=== PATIENT | female | born 1980 | race Caucasian/White ===

== ENCOUNTER 2021-04-03 20:32 | Inpatient (IN) ==
--- NOTE | 2021-04-03 21:07 | XRay Report ---
INDICATION: coughing blood tinged sputum TECHNIQUE: PA and lateral upright chest x-ray COMPARISON: Previous chest x-ray dated 03/19/2021 FINDINGS: Lungs: Dense right lower lobe consolidation consistent with pneumonia. This is new since previous examination. Growth is too rapid for neoplasm. Left lung is negative Heart, vascular: No significant cardiomegaly. Pulmonary vascularity is normal. No pulmonary edema or pulmonary congestion Mediastinum, micaela: No mediastinal widening. No hilar mass Pleura:No pleural fluid. No pleural-based mass or calcification Thoracic spine, ribs: No thoracic compression fracture. Ribs are negative. No fracture. No lytic lesion IMPRESSION: Right lower lobe consolidation consistent with pneumonia Interpreted and Authenticated by: Omar Houser 04/03/21
[2021-04-03] MEDS ORDERED: 0.9 % SODIUM CHLORIDE 1,000 ML IV ONE ×3 (21:48→23:17)
[2021-04-03] MEDS ORDERED: LEVOFLOXACIN 750 MG/150 ML BAG IV ONE (21:50)
--- NOTE | 2021-04-03 21:51 | Emergency Department Note ---
HPI General Chief complaint: Rib Pain Stated complaint: Right Rib Pain Time Seen by Provider: 04/03/21 20:49 Source: patient Mode of arrival: ambulatory Limitations: no limitations History of Present Illness HPI Narrative: Narrative: The patient presents with continued right-sided rib pain. This is nontraumatic. She was seen 10 days ago and reportedly had a negative work-up. She does describe a cough. She denies fever. She has mild dyspnea because of the pain. She denies calf pain or swelling. She is naus eated and vomited one time. She denies other associated problems. She denies having any fever. Related Data Home Medications Medication Instructions Recorded Confirmed albuterol sulfate 90 mcg/actuation See Rx Instructions INHALATION 04/23/20 04/23/20 aerosol inhaler .COMPLEX PRN g buspirone 15 mg tablet See Rx Instructions PO .COMPLEX 04/23/20 04/23/20 desogestrel 0.15 mg-ethinyl See Rx Instructions PO .COMPLEX 04/23/20 04/23/20 estradiol 0.03 mg tablet duloxetine 30 mg capsule,delayed See Rx Instructions PO .COMPLEX 04/23/20 04/23/20 release hydroxyzine HCl 25 mg tablet See Rx Instructions PO .COMPLEX 04/23/20 04/23/20 hyoscyamine sulfate 0.375 mg See Rx Instructions PO .COMPLEX 04/23/20 04/23/20 tablet,extended release,12 hr pantoprazole 40 mg tablet,delayed See Rx Instructions PO .COMPLEX 04/23/20 04/23/20 release quetiapine 50 mg tablet See Rx Instructions PO .COMPLEX 04/23/20 04/23/20 tab verapamil 120 mg tablet See Rx Instructions PO .COMPLEX 04/23/20 04/23/20 Previous Rx's Medication Instructions Recorded ibuprofen 800 mg PO Q8HP PRN #20 tab 01/04/17 cyclobenzaprine 10 mg tablet 10 mg PO TID PRN #30 tab 06/19/19 lidocaine [Lidoderm] 1 patch TOPICAL QDAY PRN #15 ea 03/19/21 prednisone 50 mg PO QDAY #4 tab 03/19/21 Allergies Allergy/AdvReac Type Severity Reaction Status Date / Time Penicillins Allergy Intermediate Unknown Verified 03/19/21 16:31 latex Allergy Unknown Verified 03/19/21 16:31 naproxen [From Aleve] AdvReac Nausea Verified 03/19/21 16:31 Tape Allergy Severe Unknown Uncoded 06/23/19 13:58 Review of Systems ROS ROS Narrative: Narrative: All systems ED: reviewed and negative except as stated. [facility] Narrative Patient History Narrative: Narrative: Medical/Surgical/Family History All Active Problems (Updated 04/04/21 @ 01:37 by Kane Del Real MD) Cough (Acute) Pneumonia (Acute) Severe sepsis (Acute) History of surgery (Acute) Major depressive disorder, recurrent, unspecified (Acute) Hypertension (Acute) Unspecified asthma, uncomplicated (Acute) Cervicalgia (Acute) Chronic pain (Acute) Foot drop, right foot (Acute) Pain in left shoulder (Acute) Migraine (Acute) Left otitis media (Acute) Abrasion, right knee, initial encounter (Acute) Paresthesia (Acute) Irregular menstrual bleeding (Acute) Tension headache (Acute) Fracture of fourth toe, left, closed (Acute) Acute right flank pain (Acute) Superficial bruising of abdominal wall (Acute) Gastroenteritis (Acute) Family history of carcinoma in situ of colon (Chronic) Reactive airway disease (Chronic) Generalized hyperhidrosis (Chronic) Smoker (Chronic) Contraceptive management (Chronic) Urge incontinence (Chronic) GERD (gastroesophageal reflux disease) (Chronic) Headache (Chronic) Anxiety states (Chronic) Anxiety and depression (Chronic) Chronic back pain (Chronic) Irritable bowel syndrome (Chronic) Hematuria (Chronic) Constipation (Acute) Abdominal pain (Acute) Anxiety (Acute) Gastritis (Acute) Chronic abdominal pain (Acute) Medical History Abdominal pain Acute right flank pain Anxiety Anxiety and depression Anxiety states Cervicalgia Chronic abdominal pain Chronic back pain Chronic pain Constipation Contraceptive management Family history of carcinoma in situ of colon Foot drop, right foot Gastritis Gastroenteritis Generalized hyperhidrosis GERD (gastroesophageal reflux disease) Headache Hematuria Hypertension Irritable bowel syndrome Major depressive disorder, recurrent, unspecified Pain in left shoulder Reactive airway disease Smoker Superficial bruising of abdominal wall Unspecified asthma, uncomplicated Urge incontinence Surgical History History of cholecystectomy History of surgery SI Joint Injection Right w/o sed 03-23-12 SI Joint Injection Right w/o sed 2 SI Joint Injection Right w/sed 11-22-11 Family History Other Diabetes Family history of carcinoma in situ of colon HTN (hypertension) Stroke Social History Smoking Status: Current every day smoker Alcohol Intake Frequency: does not drink Substance Use: does not use Exam Narrative Narrative: Narrative: General Limitations: no limitations General appearance: Present alert and in no apparent distress (The patient can speak in multiple word sentences) Head Head: Present atraumatic and normal inspection Eye Eye: Present normal appearance ENT ENT: Present mucous membranes dry; Absent mucous membranes moist Neck Neck: Present normal inspection, full ROM and trachea midline Chest Chest: Present normal inspection and symmetric chest wall rise Respiratory Respiratory: Present other (Rhonchorous right base); Absent normal lung sounds bilaterally and respiratory distress Cardiovascular Cardiovascular: Present normal rhythm and tachycardia; Absent regular rate Adbominal Abdominal: Present soft; Absent distention and tenderness Extremities Extremities: Present normal inspection and full ROM; Absent tenderness, pedal edema and calf tenderness Back Back: Present full ROM Neurological Neurological: Present alert and oriented X3 Psychiatric Psychiatric: Present normal affect and normal mood Skin Skin: Present warm (WNL) and dry Course Reevaluation(s) Reevaluation #1: I am being told by data warehouse developer that we do not have a bed available to admit this patient. We are going to try to find a local bed somewhere close. Time: 23:05 Reevaluation #2: The data warehouse developer was able to make arrangements so that we can admit this patient locally. I spoke to the hospitalist, Dr. Joshua. He agreed to come down and evaluate for admission Time: 01:36 Vital Signs Vital signs: Vital Signs Temperature 97.0 F 04/03/21 20:33 Pulse Rate 120 H 04/03/21 20:33 Respiratory Rate 18 04/03/21 20:33 Blood Pressure 87/56 04/03/21 20:33 Pulse Oximetry (%) 96 04/03/21 20:33 Temperature 97.0 F 04/03/21 20:33 Pulse Rate 116 H 04/04/21 01:20 Respiratory Rate 24 H 04/04/21 01:20 Blood Pressure 101/51 04/04/21 01:20 Pulse Oximetry (%) 95 04/04/21 01:20 [facility] MDM Narrative Medical decision making narrative: Narrative: The patient presents with right- sided atraumatic chest pain. She has a cough. Infectious etiology is c onsidered. Pulmonary embolism is a remote possibility, however patient has no risk factors for this and her only physical exam finding is her tachycardia. Cardiac etiology is unlikely given duration of symptoms. Chest x-ray shows an infiltrate. We will obtain labs and a lactate. Due to her penicillin allergy, we will use Levaquin. Patient is mildly hypotensive so we will give a liter of fluid. She is not hypoxic and would like to be discharged. If the fluid corrects the blood pressure issue and the tachycardia, then a discharge on oral Levaquin may be discussed. Lab Data Result diagrams: 04/03/21 21:26 04/03/21 21:26 Labs: Lab Results 04/03/21 04/03/21 04/03/21 Range/Units 21:26 21:26 21:50 WBC 29.8 H (4.5-11.0) K/mcL RBC 4.33 (4.00-5.20) M/mcL Hgb 11.8 L (12.0-15.0) g/dL Hct 35.9 L (36.0-48.0) % MCV 82.9 (80.0-100.0) fL MCH 27.3 (26.0-34.0) pg MCHC 32.9 (31.0-36.0) g/dL RDW 15.9 H (11.5-14.5) % Plt Count 345 (140-440) K/mcL MPV 10.9 H (7.4-10.4) fL Neut % (Auto) 90.9 H (38.0-78.0) % Lymph % (Auto) 5.4 L (15.0-49.0) % [place] % (Auto) 3.4 (1.0-12.0) % Eos % (Auto) 0 (0.0-7.0) % Baso % (Auto) 0.3 (0.0-2.0) % Lymph # (Auto) 1.60 (1.50-4.80) K/mcL [place] # (Auto) 1.00 H (0.10-0.90) K/mcL Eos # (Auto) 0.01 (0.00-0.70) K/mcL Baso # (Auto) 0.10 (0.00-0.20) K/mcL Absolute Neutrophils 27.05 H (1.80-8.00) K/mcL VBG Lactic Acid 2.7 H (0.5-2.0) mmol/L Sodium 136 (133-145) mmol/L Potassium 4.3 (3.3-5.1) mmol/L Chloride 100 (96-108) mmol/L Carbon Dioxide 22 (22-30) mmol/L Anion Gap 14.0 (8.0-16.0) BUN 16 (6-20) mg/dL Creatinine 1.4 H (0.6-1.1) mg/dL GFR Calculation 47 Glucose 85 (70-105) mg/dL Calcium 8.8 (8.6-10.4) mg/dL Total Bilirubin 1.6 H (0.1-1.0) mg/dL AST 24 (<32) U/L ALT 30 (<40) U/L Alkaline Phosphatase 117 (39-117) U/L Total Protein 6.6 (5.9-8.4) gm/dL Albumin 3.7 (3.2-5.2) gm/dL Globulin 2.9 (2.2-3.7) gm/dL Albumin/Globulin Ratio 1.3 (1.0-2.3) Urine Color Urine Appearance (Clear) Urine pH (5.0-9.0) Ur Specific Inlet (1.000-1.035) Urine Protein (Negative) mg/dL Urine Glucose (UA) (Negative) mg/dL Urine Ketones (Negative) mg/dL Urine Occult Blood (Negative) mg/dL Urine Nitrate (Negative) Urine Bilirubin (Negative) mg/dL Urine Urobilinogen mg/dL Ur Leukocyte Esterase (Negative) /ug Urine RBC (0-3) /hpf Urine WBC (0-4) /hpf Ur Squamous Epith Cells (0-4) /hpf Urine Bacteria (0) /hpf Hyaline Casts (0-2) /lph Urine Mucus (None) /hpf 04/03/21 Range/Units 22:55 WBC (4.5-11.0) K/mcL RBC (4.00-5.20) M/mcL Hgb (12.0-15.0) g/dL Hct (36.0-48.0) % MCV (80.0-100.0) fL MCH (26.0-34.0) pg MCHC (31.0-36.0) g/dL RDW (11.5-14.5) % Plt Count (140-440) K/mcL MPV (7.4-10.4) fL Neut % (Auto) (38.0-78.0) % Lymph % (Auto) (15.0-49.0) % [place] % (Auto) (1.0-12.0) % Eos % (Auto) (0.0-7.0) % Baso % (Auto) (0.0-2.0) % Lymph # (Auto) (1.50-4.80) K/mcL [place] # (Auto) (0.10-0.90) K/mcL Eos # (Auto) (0.00-0.70) K/mcL Baso # (Auto) (0.00-0.20) K/mcL Absolute Neutrophils (1.80-8.00) K/mcL VBG Lactic Acid (0.5-2.0) mmol/L Sodium (133-145) mmol/L Potassium (3.3-5.1) mmol/L Chloride (96-108) mmol/L Carbon Dioxide (22-30) mmol/L Anion Gap (8.0-16.0) BUN (6-20) mg/dL Creatinine (0.6-1.1) mg/dL GFR Calculation Glucose (70-105) mg/dL Calcium (8.6-10.4) mg/dL Total Bilirubin (0.1-1.0) mg/dL AST (<32) U/L ALT (<40) U/L Alkaline Phosphatase (39-117) U/L Total Protein (5.9-8.4) gm/dL Albumin (3.2-5.2) gm/dL Globulin (2.2-3.7) gm/dL Albumin/Globulin Ratio (1.0-2.3) Urine Color Giuliana Urine Appearance Cloudy A (Clear) Urine pH 5.0 (5.0-9.0) Ur Specific Inlet 1.017 (1.000-1.035) Urine Protein 30 A (Negative) mg/dL Urine Glucose (UA) Neg (Negative) mg/dL Urine Ketones Neg (Negative) mg/dL Urine Occult Blood Neg (Negative) mg/dL Urine Nitrate Neg (Negative) Urine Bilirubin Neg (Negative) mg/dL Urine Urobilinogen 2.0 A mg/dL Ur Leukocyte Esterase Neg (Negative) /ug Urine RBC < 1 (0-3) /hpf Urine WBC 18 H (0-4) /hpf Ur Squamous Epith Cells 11 H (0-4) /hpf Urine Bacteria Many A (0) /hpf Hyaline Casts 51 H (0-2) /lph Urine Mucus Many A (None) /hpf ED POC Tests ED POC Tests: NAHUN - SARS Antigen Negative CC TIME Critical Care Time Critical Care Time: Yes Total Critical Care Time: 135 Discharge Plan Patient/Caregiver Discharge Instructions Pt seen by ROTARY DRIER/PA only: No Clinical Impression: Pneumonia, Severe sepsis Patient Disposition: Xfer As Inpt ([facility]) Follow up with: Deidre Phillip ARNP [Primary Care Provider] - Prescriptions: No Action albuterol sulfate [ProAir HFA] 90 mcg/actuation HFA aerosol inhaler See Rx Instructions INHALATION .COMPLEX PRN (Reason: Wheezing) RF: 0 desogestrel-ethinyl estradiol 0.15-0.03 mg tablet See Rx Instructions PO .COMPLEX RF: 0 hyoscyamine sulfate 0.375 mg tablet extended release 12 hr See Rx Instructions PO .COMPLEX RF: 0 duloxetine 30 mg capsule,delayed release(DR/EC) See Rx Instructions PO .COMPLEX RF: 0 cyclobenzaprine 10 mg tablet 10 mg PO TID PRN (Reason: muscle spasm) Qty: 30 RF: 0 quetiapine [Seroquel] 50 mg tablet See Rx Instructions PO .COMPLEX RF: 0 pantoprazole 40 mg tablet,delayed release (DR/EC) See Rx Instructions PO .COMPLEX RF: 0 ibuprofen 800 MG tablet 800 mg PO Q8HP PRN (Reason: Pain) Qty: 20 RF: 0 verapamil 120 mg tablet See Rx Instructions PO .COMPLEX RF: 0 buspirone 15 mg tablet See Rx Instructions PO .COMPLEX RF: 0 hydroxyzine HCl 25 mg tablet See Rx Instructions PO .COMPLEX RF: 0 lidocaine [Lidoderm] 5 % adhesive patch,medicated 1 patch topical QDAY PRN (Reason: pain) Qty: 15 RF: 0 prednisone 50 mg tablet 50 mg PO QDAY Qty: 4 RF: 0
[2021-04-03] MEDS ORDERED: KETOROLAC 15 MG/ML VIAL IV ONE (22:17)
[2021-04-03 22:46] LABS: Basophils % (Auto) 0.3 % (0.0-2.0); Eosinophils # (Auto) 0.01 K/mcL (0.00-0.70); Eosinophils % (Auto) 0 % (0.0-7.0); Hematocrit 35.9 % (36.0-48.0); Hemoglobin 11.8 g/dL (12.0-15.0); Lymphocytes % (Auto) 5.4 % (15.0-49.0); Mean Cell Volume 82.9 fL (80.0-100.0); Mean Corpuscular HGB Conc 32.9 g/dL (31.0-36.0); Mean Platelet Volume 10.9 fL (7.4-10.4); Monocytes % (Auto) 3.4 % (1.0-12.0); Neutrophils % (Auto) 90.9 % (38.0-78.0); Platelet Count 345 K/mcL (140-440); RBC 4.33 M/mcL (4.00-5.20); Red Cell Distribution Width 15.9 % (11.5-14.5); WBC 29.8 K/mcL (4.5-11.0)
[2021-04-03 23:14] LABS: ALT/SGPT 30 U/L (<40); AST/SGOT 24 U/L (<32); Albumin 3.7 gm/dL (3.2-5.2); Albumin/Globulin Ratio 1.3 (1.0-2.3); Alkaline Phosphatase 117 U/L (39-117); Bilirubin,Total 1.6 mg/dL (0.1-1.0); Blood Urea Nitrogen 16 mg/dL (6-20); Calcium 8.8 mg/dL (8.6-10.4); Carbon Dioxide 22 mmol/L (22-30); Chloride 100 mmol/L (96-108); Globulin 2.9 gm/dL (2.2-3.7); Glomerular Filtration Rate 47; Glucose 85 mg/dL (70-105)
[2021-04-04 00:10] LABS: Appearance,Urine CLOUDY (Clear); Bacteria,Urine MANY /hpf (0); Bilirubin,Urine NEG (Negative); Color,Urine AMBER; Glucose,Urine (UA) NEG (Negative); Ketones,Urine NEG (Negative); Leukocyte Esterase,Urine NEG /ug (Negative); Mucus,Urine MANY /hpf; Nitrate,Urine NEG (Negative); Protein,Urine 30 mg/dL (Negative); Specific Gravity,Urine 1.017 (1.000-1.035); Urine Blood NEG (Negative); Urine Hyaline Cast 51 /lph (0-2); Urine RBC < 1 /hpf (0-3); Urine Squamous Epithelial Cell 11 /hpf (0-4); Urine WBC 18 /hpf (0-4)
[2021-04-04] MEDS ORDERED: NOREPINEPHRINE BITARTRATE 8 MG in 0.9 % SODIUM CHLORIDE 242 ML IV SCH (00:30)
[2021-04-04] MEDS ORDERED: 0.9 % SODIUM CHLORIDE 250 ML IV SCH (00:30)
[2021-04-04] MEDS ORDERED: NICOTINE 21 MG PATCH TOPICAL ONE (00:52)
--- NOTE | 2021-04-04 13:02 | Cat Scan Report ---
INDICATION: Rule out empyema, persistent pleuritic chest pain COMPARISON: Chest x-rays dated 04/03/2021, 03/19/2021 TECHNIQUE: Axial contrast enhanced images through the chest. Sagittally and coronally reformatted images. MIP reformatted images. 80ml Isovue 370 injected intravenously. FINDINGS: Lungs:Dense right lower lobe consolidation this abuts the major fissure and posterior pleural surface. Appearance is essentially unchanged since 04/03/2021 and new since 03/19/2021. Appearance is consistent with bacterial pneumonia Right upper lobe and right middle lobe are negative. Left lung is negative. Mediastinum, vascular:Normal thoracic aorta. No thoracic aortic aneurysm or dissection. No pathologic mediastinal adenopathy. There is mild right hilar adenopathy Heart:No cardiomegaly. No pericardial effusion. No significant coronary artery calcification Pleura:There is minimal right pleural fluid. No evidence for empyema Axilla, supraclavicular regions, chest wall:No pathologic axillary or supraclavicular adenopathy. Musculoskeletal:No thoracic compression fracture or lytic lesion. No sternal or rib lesion Upper Abdomen:Negative IMPRESSION: 1. Dense right lower lobe consolidation consistent with bacterial pneumonia 2. Minimal right pleural fluid. No evidence for empyema The exam was performed using radiation dose optimization techniques including, but not limited to, automated exposure control, adjustment of the mA and/or kV according to patient size and use of iterative reconstruction technique. Interpreted and Authenticated by: Omar Houser 04/04/21
[2021-04-06] MEDS: PANTOPRAZOLE 40 MG TABLET PO SCH (08:25)
--- NOTE | 2021-04-06 08:26 | XRay Report ---
CLINICAL INFORMATION: PNA COMPARISON: 04/03/2021 FINDINGS: Cardiomediastinal silhouette and pulmonary vessels are normal for technique. Moderate rounded infiltrate in the right midlung and base shows less consolidation compared to the prior study three days ago. Small right pleural effusion has developed. IMPRESSION: Moderate right mid lung/base infiltrate - improving aeration compared to exam three days ago Interpreted and Authenticated by: Omar Randhawa 04/06/21
[2021-04-06] MEDS ORDERED: HYDROmorphone 0.5 MG/0.5 ML SYRINGE IV ONE (09:31)
--- NOTE | 2021-04-06 10:15 | Internal Med History&Physical ---
HPI History of Present Illness Patient information: Note initiated : 04/04/21 at 9:05 am Service Date, if different from initiated Date: [] Patient: Bisi Rios a 40 y/o F admitted on 04/04/21 for SOB, cough. Chief Complaint: [] History of present illness: Ms. Rios is a 40 year old F living at home with her kid presents to the ER with worsening cough and right-sided chest pleuritic pain. She was recently evaluated In the ER on March 19 with similar symptoms. She was diagnosed with costochondritis and after initial work-up was discharged home. However over the course of 2 weeks she noted increasing sweats, weakness, fluctuating blood pres sure, lethargic, shortness of breath and now presents with worsening right-sided pleuritic chest pain along with associated cough. Initial work-up was consistent with hypotension and septic shock with white count in excess of 29,000. Imaging consistent with right lower lobe pneumonia. Patient was started on pressors after cultures were drawn and antibiotics were initiated. Evidence of multiple endorgan dysfunction during elevated creatinine/bilirubin.. Hospital service was consulted for admission. At the time of my evaluation patient is alert but anxious. She is able to endorse history as above. Endorses to frequent cough and yellowish-orange urine. Denies weight loss, joint pain, rash, headache photophobia. Review of systems 10 point review system was performed and is negative except for 1 discussed above PFSH PFSH All Active Problems (Updated 04/04/21 @ 01:37 by Kane Del Real MD) Cough (Acute) Pneumonia (Acute) Severe sepsis (Acute) History of surgery (Acute) Major depressive disorder, recurrent, unspecified (Acute) Hypertension (Acute) Unspecified asthma, uncomplicated (Acute) Cervicalgia (Acute) Chronic pain (Acute) Foot drop, right foot (Acute) Pain in left shoulder (Acute) Migraine (Acute) Left otitis media (Acute) Abrasion, right knee, initial encounter (Acute) Paresthesia (Acute) Irregular menstrual bleeding (Acute) Tension headache (Acute) Fracture of fourth toe, left, closed (Acute) Acute right flank pain (Acute) Superficial bruising of abdominal wall (Acute) Gastroenteritis (Acute) Family history of carcinoma in situ of colon (Chronic) Reactive airway disease (Chronic) Generalized hyperhidrosis (Chronic) Smoker (Chronic) Contraceptive management (Chronic) Urge incontinence (Chronic) GERD (gastroesophageal reflux disease) (Chronic) Headache (Chronic) Anxiety states (Chronic) Anxiety and depression (Chronic) Chronic back pain (Chronic) Irritable bowel syndrome (Chronic) Hematuria (Chronic) Constipation (Acute) Abdominal pain (Acute) Anxiety (Acute) Gastritis (Acute) Chronic abdominal pain (Acute) Medical History Abdominal pain Acute right flank pain Anxiety Anxiety and depression Anxiety states Cervicalgia Chronic abdominal pain Chronic back pain Chronic pain Constipation Contraceptive management Family history of carcinoma in situ of colon Foot drop, right foot Gastritis Gastroenteritis Generalized hyperhidrosis GERD (gastroesophageal reflux disease) Headache Hematuria Hypertension Irritable bowel syndrome Major depressive disorder, recurrent, unspecified Pain in left shoulder Reactive airway disease Smoker Superficial bruising of abdominal wall Unspecified asthma, uncomplicated Urge incontinence Surgical History History of cholecystectomy History of surgery SI Joint Injection Right w/o sed 03-23-12 SI Joint Injection Right w/o sed 12-09-11 SI Joint Injection Right w/sed 11-22-11 Family History Other Diabetes Family history of carcinoma in situ of colon HTN (hypertension) Stroke Social History (Updated 06/19/19 @ 13:53 by Kane Brown PA-C) alcohol intake frequency: does not drink substance use type: does not use MEDS/ALLERGIES Home Medications and Allergies Home Medications Medication Instructions Recorded Confirmed Type albuterol sulfate 90 mcg/actuation See Rx Instructions INHALATION 04/23/20 04/04/21 History aerosol inhaler .COMPLEX PRN g buspirone 15 mg tablet 7.5 mg PO DAILY 04/23/20 04/04/21 History hydroxyzine HCl 25 mg tablet 25 mg PO QHS 04/23/20 04/04/21 History hyoscyamine sulfate 0.375 mg 0.375 mg PO QAM 04/23/20 04/04/21 History tablet,extended release,12 hr pantoprazole 40 mg tablet,delayed 40 mg PO QAM 04/23/20 04/04/21 History release quetiapine 50 mg tablet 50 mg PO QHS tab 04/23/20 04/04/21 History verapamil 120 mg tablet 60 mg PO Q48H 04/23/20 04/04/21 History lidocaine [Lidoderm] 1 patch TOPICAL QDAY PRN #15 ea 03/19/21 04/04/21 Rx buspirone 22.5 mg PO HS 04/04/21 04/04/21 History fluoxetine 20 mg PO QHS 04/04/21 04/04/21 History ondansetron HCl 4 mg PO Q4H PRN 04/04/21 04/04/21 History Allergies Allergy/AdvReac Type Severity Reaction Status Date / Time latex Allergy Unknown Unknown Verified 04/04/21 07:35 Penicillins Allergy Unknown Unknown Verified 04/04/21 07:35 naproxen [From Aleve] AdvReac Mild Nausea Verified 04/04/21 07:35 Tape Allergy Unknown Unknown Uncoded 04/04/21 07:35 EXAM Constitutional Vitals: Temp Pulse Resp BP Pulse Ox 96.9 F L 77 28 H 143/96 95 04/04/21 08:00 04/04/21 08:00 04/04/21 08:00 04/04/21 08:00 04/04/21 08:00 Anxious, uncomfortable, BMI 31 Head normocephalic Oral cavity moist No ear or nose discharge Eye no subconjunctival pallor, movement symmetrical S1-S2 regular tachycardia Right-sided diminished breath sounds, pleuritic pain Nondistended nontender abdomen Lower extremity no cyanosis clubbing or joint swelling Skin no suspicious lesion Psych anxious but no hallucination Neuro normal higher function on limited neuro exam DATA Data Completed and Pending Labs: Labs from last 24 hours 04/04/21 04/04/21 04/04/21 06:15 06:15 06:14 WBC 24.5 H RBC 3.96 L Hgb 10.5 L Hct 32.8 L MCV 82.8 MCH 26.5 MCHC 32.0 RDW 15.8 H Plt Count 325 MPV 11.3 H Neut % (Auto) 89.8 H Lymph % (Auto) 6.0 L [place] % (Auto) 4.0 Eos % (Auto) 0 Baso % (Auto) 0.2 Lymph # (Auto) 1.47 L [place] # (Auto) 0.98 H Eos # (Auto) 0.01 Baso # (Auto) 0.06 Absolute Neutrophils 21.99 H VBG Lactic Acid 2.1 H Sodium 135 Potassium 4.5 Chloride 103 Carbon Dioxide 21 L Anion Gap 11.0 BUN 19 Creatinine 1.1 GFR Calculation 63 Glucose 106 H Uric Acid 4.0 Calcium 7.7 L Phosphorus 3.8 Magnesium 1.0 L Total Bilirubin 2.0 H Direct Bilirubin 1.3 H GGT 152 H AST 27 ALT 31 Alkaline Phosphatase 109 Lactate Dehydrogenase 162 Total Protein 5.7 L Albumin 3.1 L Globulin 2.6 Albumin/Globulin Ratio 1.2 Triglycerides 187 H A/P Narrative A/P Narrative: * Right lower lobe pneumonia-empiric broad-spectrum antibiotic coverage * Septic shock with multiple endorgan dysfunction, white count 25,000 with elevated lactate, BOBBY, elevated bilirubin * Acute hypoxic respiratory failure on 3 L oxygen * Pleurisy high probability empyema. CT scan chest. * Acute kidney injury secondary sepsis endorgan dysfunction. Creatinine 1.4 * Elevated bilirubin * History of anxiety disorder continue BuSpar/quetiapine(held due to interaction with Levaquin) * GERD continue PPI * Prophylaxis Heparin Plan * ICU admission * Initiate vasopressors to keep MAP at goal * Broad-spectrum antibiotics * Pre-existing medical condition management home medications once septic shock resolved * PT OT/nutrition support Time Spent With Patient Time: Critical care time spent on management of septic shock in excess of 35 minutes in addition to time spent on history and physical QUALITY VTE Deep Vein Thrombosis/Pulmonary Embolism Present on Admission: No
--- NOTE | 2021-04-06 10:17 | Internal Med Progress Note ---
SUBJECTIVE Subjective Patient information: Note initiated : 04/05/21 at 10:04 am Service Date, if different from initiated Date: [] Patient: Bisi Rios a 40 y/o F admitted on 04/04/21 for SOB, cough. Chief Complaint: [] Interval history: Ms. Rios is a 40 year old F living with her kid presents to the ER with worsening cough and right-sided pleuritic chest pain. She was recently evaluated in the ER on March 19 with similar symptoms. She was diagnosed with costochondritis and after initial work-up was discharged home. However over the course of 2 weeks she noted increasing sweats, weakness, fluctuating blood pressure, lethargic, shortness of breath and now presents with worsening right-sided pleuritic chest pain along with associated cough. Initial work-up was consistent with hypotension and septic shock with white count in excess of 29,000. Imaging consistent with right lower lobe pneumonia. Patient was started on pressors after cultures were drawn and antibiotics were initiated. Evidence of multiple endorgan dysfunction during elevated creatinine/bilirubin.. Hospital service was consulted for admission. At the time of my evaluation patient is alert but anxious. She is able to endorse history as above. Endorses to frequent cough and yellowish-orange urine. Denies weight loss, joint pain, rash, headache photophobia. 6/- Hemophillus bacteremia, Off pressors, WBC 15K, Improved end organ dysfunction, CT chest no evidence of empyema, Large RLL PNA. Improved Bili and lactate. On Abx . Feels anxious, Significant other in room. No concerns per staff. Phos 1.8, start replacement. Pyuria on UA. Constitutional Vitals: Vital Signs Temp Pulse Resp BP Pulse Ox 97.9 F 80 16 97/72 93 04/05/21 08:00 04/05/21 09:00 04/05/21 09:00 04/05/21 09:00 04/05/21 09:00 Period Temp Pulse Resp BP Sys/Read Pulse Ox Last 24 Hr 97.2 F-97.9 F 74-99 16-30 78-115/56-87 92-100 Intake and Output 04/04/21 04/05/21 04/05/21 21:59 05:59 13:59 Intake Total 240 Output Total 802 352 50 Balance -562 -352 -50 Weight 99.11 kg Doing well Non labored breathing, pleuritic chest pain noted no tele events anxious no lymphedema Intake & Output: Intake & Output 04/04/21 04/05/21 04/05/21 21:59 05:59 13:59 Intake Total 240 Output Total 802 352 50 Balance -562 -352 -50 Weight 99.11 kg Intake: Oral 240 Output: Void Amount 800 350 50 # of times incontinent of urine 2 2 Other: Urine Appearance Clear Clear Clear Urine Color Light Giuliana Dark Yellow Light Giuliana Urine Odor Normal Normal OBJ DATA Labs CBC & Chem 7: 04/03/21 21:26 04/03/21 21:26 Labs: Abnormal Lab Results 04/05/21 04/05/21 04/04/21 05:19 05:19 09:24 WBC 15.3 H RBC 3.31 L Hgb 9.0 L Hct 27.2 L RDW 16.1 H MPV 11.2 H Neut % (Auto) 79.4 H Lymph % (Auto) 13.3 L Lymph # (Auto) [place] # (Auto) Absolute Neutrophils 12.14 H ESR VBG Lactic Acid Carbon Dioxide Anion Gap 7.0 L Glucose Calcium 8.1 L Phosphorus 1.8 L Magnesium Total Bilirubin Direct Bilirubin 0.4 H GGT 120 H Alkaline Phosphatase 123 H C-Reactive Protein Total Protein 5.4 L Albumin 2.7 L Triglycerides 296 H Procalcitonin 13.78 H 04/04/21 04/04/21 04/04/21 09:24 09:24 06:15 WBC RBC Hgb Hct RDW MPV Neut % (Auto) Lymph % (Auto) Lymph # (Auto) [place] # (Auto) Absolute Neutrophils ESR 37 H VBG Lactic Acid Carbon Dioxide 21 L Anion Gap Glucose 106 H Calcium 7.7 L Phosphorus Magnesium 1.0 L Total Bilirubin 2.0 H Direct Bilirubin 1.3 H GGT 152 H Alkaline Phosphatase C-Reactive Protein 23.80 H Total Protein 5.7 L Albumin 3.1 L Triglycerides 187 H Procalcitonin 04/04/21 04/04/21 06:15 06:14 WBC 24.5 H RBC 3.96 L Hgb 10.5 L Hct 32.8 L RDW 15.8 H MPV 11.3 H Neut % (Auto) 89.8 H Lymph % (Auto) 6.0 L Lymph # (Auto) 1.47 L [place] # (Auto) 0.98 H Absolute Neutrophils 21.99 H ESR VBG Lactic Acid 2.1 H Carbon Dioxide Anion Gap Glucose Calcium Phosphorus Magnesium Total Bilirubin Direct Bilirubin GGT Alkaline Phosphatase C-Reactive Protein Total Protein Albumin Triglycerides Procalcitonin Meds: Medications Acetaminophen (Acetaminophen 325 Mg Tablet) 650 mg PO Q4-6HP PRN; Protocol PRN Reason: Per Pain Protocol/Fever > 101 Last Admin: 04/05/21 04:00 Dose: 650 mg Documented by: Albuterol Sulfate (Albuterol Sulfate 200 Puff Inhaler) 1 puff INH Q6HP PRN PRN Reason: Wheezing Albuterol/Ipratropium (Ipratropium/Albuterol 3 Ml Ampul.Neb) 3 ml NEB Q4HRT [facility] Last Admin: 04/05/21 07:55 Dose: 3 ml Documented by: Bisacodyl (Bisacodyl 10 Mg Supp.Rect) 10 mg MA Q2-3DAYS PRN PRN Reason: Constipation Buspirone HCl (Buspirone 15 Mg Tablet) 22.5 mg PO HS [facility] Last Admin: 04/04/21 20:29 Dose: 22.5 mg Documented by: Buspirone HCl (Buspirone 15 Mg Tablet) 7.5 mg PO DAILY [facility] Docusate Sodium (Docusate Sodium 100 Mg Capsule) 100 mg PO BID [facility] Last Admin: 04/05/21 09:51 Dose: 100 mg Documented by: Fluoxetine HCl (Fluoxetine Hcl 20 Mg Capsule) 20 mg PO QHS [facility] Last Admin: 04/04/21 20:30 Dose: 20 mg Documented by: Guaifenesin/Codeine Phosphate (Guaifenesin/Codeine 10 Ml Udc) 10 ml PO Q4HP PRN PRN Reason: Cough Last Admin: 04/05/21 02:04 Dose: 10 ml Documented by: Heparin Sodium (Porcine) (Heparin 5,000 Unit/Ml Vial) 5,000 unit SQ Q12 [facility] Last Admin: 04/05/21 09:51 Dose: 5,000 unit Documented by: Norepinephrine Bitartrate 8 mg (/ Sodium Chloride) 250 mls @ 18.75 mls/hr IV Q 14H [facility]; Protocol Last Admin: 04/05/21 08:02 Dose: Not Given Documented by: Sodium Chloride (Sodium Chloride 0.9%) 250 mls @ 20 mls/hr IV .[id number] [facility] Last Admin: 04/05/21 05:55 Dose: Not Given Documented by: Potassium Chloride 40 meq/ (Dextrose) 520 mls @ 130 mls/hr IV UD PRN PRN Reason: K+ = or < 3.5 Acetaminophen (Ofirmev) 650 mg in 65 mls @ 130 mls/hr IV Q6HP PRN; Protocol PRN Reason: Per Pain Protocol/Fever > 101 Magnesium Sulfate (Magnesium Sulfate) 2 gm in 50 mls @ 50 mls/hr IV UD PRN PRN Reason: MG = or < 1.7 Last Infusion: 04/04/21 13:29 Dose: Infused Documented by: Ceftriaxone Sodium 2 gm/ (Dextrose) 50 mls @ 100 mls/hr IV Q24H [facility]; Protocol Last Admin: 04/05/21 09:51 Dose: 100 mls/hr Documented by: Levofloxacin (Levaquin) 750 mg in 150 mls @ 100 mls/hr IV Q24H [facility]; Protocol Last Infusion: 04/04/21 12:37 Dose: Infused Documented by: Sodium Chloride (Sodium Chloride 0.9%) 250 mls @ 20 mls/hr IV .[id number] [facility] Last Admin: 04/04/21 21:40 Dose: Not Given Documented by: Sodium Chloride (Sodium Chloride 0.9%) 1,000 mls @ 50 mls/hr IV .Q20H [facility] Stop: 04/06/21 21:14 Last Admin: 04/05/21 05:55 Dose: Not Given Documented by: Sodium Chloride (Sodium Chloride 0.9%) 1,000 mls @ 0 mls/hr IV BOLUS [facility] Last Infusion: 04/04/21 10:15 Dose: Infused Documented by: Iron Carb/Multivit/[place]/Folic Acid (Multivit,Ther Iron,Ca,Fa & Min 1 Tablet) 1 tab PO DAILY [facility] Last Admin: 04/05/21 09:50 Dose: 1 tab Documented by: Lidocaine (Lidocaine Patch) 1 patch TOPICAL DAILY@1000 [facility] Last Admin: 04/04/21 20:07 Dose: 1 patch Documented by: Lorazepam (Lorazepam 0.5 Mg Tablet) 0.5 mg PO Q6HP PRN PRN Reason: ANXIETY/SEDATION Last Admin: 04/05/21 02:05 Dose: 0.5 mg Documented by: Melatonin (Melatonin 3 Mg Tablet) 3 mg PO HSP PRN PRN Reason: Insomnia Last Admin: 04/04/21 20:30 Dose: 3 mg Documented by: Nicotine (Nicotine 21 Mg Patch) 21 mg TOPICAL DAILY@1000 [facility] Last Admin: 04/04/21 19:21 Dose: 21 mg Documented by: Ondansetron HCl (Ondansetron 4 Mg Odt Tablet) 4 mg SL Q4-6HP PRN; Protocol PRN Reason: Nausea And Vomiting Ondansetron HCl (Ondansetron 4 Mg/2 Ml Vial) 4 mg IV Q4-6HP PRN; Protocol PRN Reason: Nausea And Vomiting Pantoprazole Sodium (Pantoprazole 40 Mg Tablet) 40 mg PO QAMAC [facility] Last Admin: 04/05/21 09:52 Dose: 40 mg Documented by: Polyethylene Glycol (Polyethylene Glycol 3350 17 Gm Packet) 17 gm PO DAILYP PRN PRN Reason: Constipation Senna/Docusate Sodium (Sennosides/Docusate Sodium 1 Tab Tablet) 1 tab PO HS [facility] Last Admin: 04/04/21 20:29 Dose: 1 tab Documented by: Sodium Chloride (0.9 % Sodium Chloride 10 Ml Syringe) 10 ml IV Q8 [facility] Last Admin: 04/05/21 05:55 Dose: 10 ml Documented by: A/P Narrative A/P Narrative: * Right lower lobe pneumonia-clinical improvement noted on broad Abx. * Hemophilus influenza Batceremia- 2/2 PNA. On Abx * Septic shock with multiple endorgan dysfunction, improved, off pressors, WBC down from 29K to 15K * Acute hypoxic respiratory failure , resolved , now on room air * Pleurisy high probability empyema. CT scan chest. * Acute kidney injury resolved, now 0.6 * Elevated bilirubin, improving * History of anxiety disorder continue BuSpar, fluoxitine/quetiapine(held due to interaction with Levaquin) * GERD continue PPI * Prophylaxis Heparin Plan * Continue Broad-spectrum antibiotics * Pre-existing medical condition management home medications once septic shock resolved * PT OT/nutrition support * transfer to [facility] surg Time Spent With Patient Time: Total time spent is greater than 50% in coordination of care (as documented) at patient's floor/unit and/or counseling patient: QUALITY VTE Deep Vein Thrombosis/Pulmonary Embolism Present on Admission: No
[2021-04-06] MEDS ORDERED: ONDANSETRON 4 MG/2 ML VIAL IV PRN (10:23)
[2021-04-06] MEDS ORDERED: ALBUTEROL SULFATE 200 PUFF INHALER INH PRN (10:23)
[2021-04-06] MEDS ORDERED: POTASSIUM CHLORIDE 40 MEQ in DEXTROSE 5% IN WATER 500 ML IV PRN (10:23)
[2021-04-06] MEDS ORDERED: ACETAMINOPHEN 325 MG TABLET PO PRN (10:23)
[2021-04-06] MEDS ORDERED: MAGNESIUM SULFATE 2 GM/50 ML BAG IV PRN (10:23)
[2021-04-06] MEDS ORDERED: POLYETHYLENE GLYCOL 3350 17 GM PACKET PO PRN (10:23)
[2021-04-06] MEDS ORDERED: POTASSIUM CHLORIDE 20 MEQ PACKET PO PRN (10:23)
[2021-04-06] MEDS ORDERED: BISACODYL 10 MG SUPP.RECT PR PRN (10:23)
[2021-04-06] MEDS ORDERED: ONDANSETRON 4 MG ODT TABLET SL PRN (10:23)
[2021-04-06] MEDS: HEPARIN 5,000 UNIT/ML VIAL SQ SCH ×2 (11:09→21:21)
[2021-04-06] MEDS: ACETAMINOPHEN 650 MG/65 ML BAG IV PRN (11:10)
[2021-04-06] MEDS: MULTIVIT,THER IRON,CA,FA & MIN 1 TABLET PO SCH (11:10)
[2021-04-06] MEDS: DOCUSATE SODIUM 100 MG CAPSULE PO SCH ×2 (11:10→21:20)
[2021-04-06] MEDS: HYDROcodone/APAP 5/325MG TABLET PO PRN ×3 (11:53→21:28)
[2021-04-06] MEDS: guaiFENesin/CODEINE 10 ML UDC PO PRN ×2 (11:53→21:29)
[2021-04-06] MEDS: HYOSCYAMINE 0.375 MG PO SCH (11:55)
[2021-04-06] MEDS: busPIRone 15 MG TABLET PO SCH (11:56)
--- NOTE | 2021-04-06 12:09 | Internal Med Progress Note ---
SUBJECTIVE Subjective Patient information: Note initiated : 04/06/21 at 12:04 pm Service Date, if different from initiated Date: [] Patient: Bisi Rios a 40 y/o F admitted on 04/04/21 for Right Rib Pain. Chief Complaint: [] Interval history: Ms. Rios is a 40 year old F living with her kid presents to the ER with worsening cough and right-sided pleuritic chest pain. She was recently evaluated in the ER on March 19 with similar symptoms. She was diagnosed with costochondritis and after initial work-up was discharged home. However over the course of 2 weeks she noted increasing sweats, weakness, fluctuating blood pressure, lethargic, shortness of breath and now presents with worsening right-sided pleuritic chest pain along with associated cough. Initial work-up was consistent with hypotension and septic shock with white count in excess of 29,000. Imaging consistent with right lower lobe pneumonia. Patient was started on pressors after cultures were drawn and antibiotics were initiated. Evidence of multiple endorgan dysfunction during elevated creatinine/bilirubin.. Hospital service was consulted for admission. At the time of my evaluation patient is alert but anxious. She is able to endorse history as above. Endorses to frequent cough and yellowish-orange urine. Denies weight loss, joint pain, rash, headache photophobia. 04/05- Hemophillus bacteremia, Off pressors, WBC 15K, Improved end organ dysfunction, CT chest no evidence of empyema, Large RLL PNA. Improved Bili and lactate. On Abx . Feels anxious, Significant other in room. No concerns per staff. Phos 1.8, start replacement. Pyuria on UA. 04/06-patient doing a lot better. Much improved clinically. No overnight fever chills. White count down to 12.9, hemoglobin 9.1, improved endorgan dysfunction including resolution of renal failure creatinine 1.6, phosphorus of 3.6. Continue antibiotic coverage for H influenza. Stable hemodynamics. Transition to medical floor. T-max 99.5, currently on room air Constitutional Vitals: Vital Signs Temp Pulse Resp BP Pulse Ox 99.5 F H 89 18 131/90 92 04/06/21 09:00 04/06/21 09:00 04/06/21 09:00 04/06/21 09:00 04/06/21 09:00 Period Temp Pulse Resp BP Sys/Read Pulse Ox Last 24 Hr 99.5 F 89 18 131/90 92 Intake and Output 04/05/21 04/06/21 04/06/21 21:59 05:59 13:59 Intake Total 65 Balance 65 Alert oriented No labored breathing Minimal anxiety Nondistended abdomen Intake & Output: Intake & Output 04/05/21 04/06/21 04/06/21 21:59 05:59 13:59 Intake Total 65 Balance 65 Intake: IV 65 Other: # Voids 3 OBJ DATA Labs CBC & Chem 7: 04/03/21 21:26 04/03/21 21:26 Labs: Abnormal Lab Results 04/03/21 04/03/21 04/03/21 22:55 21:50 21:26 WBC Hgb Hct RDW MPV Neut % (Auto) Lymph % (Auto) [place] # (Auto) Absolute Neutrophils VBG Lactic Acid 2.7 H Creatinine 1.4 H Total Bilirubin 1.6 H Urine Appearance Cloudy A Urine Protein 30 A Urine Urobilinogen 2.0 A Urine WBC 18 H Ur Squamous Epith Cells 11 H Urine Bacteria Many A Hyaline Casts 51 H Urine Mucus Many A 04/03/21 21:26 WBC 29.8 H Hgb 11.8 L Hct 35.9 L RDW 15.9 H MPV 10.9 H Neut % (Auto) 90.9 H Lymph % (Auto) 5.4 L [place] # (Auto) 1.00 H Absolute Neutrophils 27.05 H VBG Lactic Acid Creatinine Total Bilirubin Urine Appearance Urine Protein Urine Urobilinogen Urine WBC Ur Squamous Epith Cells Urine Bacteria Hyaline Casts Urine Mucus Meds: Medications Acetaminophen (Acetaminophen 325 Mg Tablet) 650 mg PO Q4-6HP PRN; Protocol PRN Reason: Per Pain Protocol/Fever > 101 Hydrocodone Bitart/Acetaminophen (Hydrocodone/Apap 5/325mg Tablet) 1 - 2 tab PO Q4HP PRN; Protocol PRN Reason: Per Pain Protocol Last Admin: 04/06/21 11:53 Dose: 1 tab Documented by: Albuterol Sulfate (Albuterol Sulfate 200 Puff Inhaler) 1 puff INH Q6HP PRN PRN Reason: Wheezing Bisacodyl (Bisacodyl 10 Mg Supp.Rect) 10 mg CA Q2-3DAYS PRN PRN Reason: Constipation Buspirone HCl (Buspirone 15 Mg Tablet) 7.5 mg PO DAILY [facility] Last Admin: 04/06/21 11:56 Dose: 7.5 mg Documented by: Docusate Sodium (Docusate Sodium 100 Mg Capsule) 100 mg PO BID [facility] Last Admin: 04/06/21 11:10 Dose: 100 mg Documented by: Fluoxetine HCl (Fluoxetine Hcl 20 Mg Capsule) 20 mg PO QHS [facility] Guaifenesin/Codeine Phosphate (Guaifenesin/Codeine 10 Ml Udc) 10 ml PO Q4HP PRN PRN Reason: Cough Last Admin: 04/06/21 11:53 Dose: 10 ml Documented by: Heparin Sodium (Porcine) (Heparin 5,000 Unit/Ml Vial) 5,000 unit SQ Q12 [facility] Last Admin: 04/06/21 11:09 Dose: 5,000 unit Documented by: Hydroxyzine HCl (Hydroxyzine 25 Mg Tablet) 25 mg PO QHS [facility] Hyoscyamine (Hyoscyamine 0.375 Mg Tab.Sr.12h) 0.375 mg PO QAM [facility] Last Admin: 04/06/21 11:55 Dose: 0.375 mg Documented by: Potassium Chloride 40 meq/ (Dextrose) 520 mls @ 130 mls/hr IV UD PRN PRN Reason: K+ = or < 3.5 Acetaminophen (Ofirmev) 650 mg in 65 mls @ 130 mls/hr IV Q6HP PRN; Protocol PRN Reason: Per Pain Protocol/Fever > 101 Last Infusion: 04/06/21 11:40 Dose: Infused Documented by: Magnesium Sulfate (Magnesium Sulfate) 2 gm in 50 mls @ 50 mls/hr IV UD PRN PRN Reason: MG = or < 1.7 Ceftriaxone Sodium 2 gm/ (Dextrose) 50 mls @ 100 mls/hr IV Q24H [facility]; Protocol Iron Carb/Multivit/[place]/Folic Acid (Multivit,Ther Iron,Ca,Fa & Min 1 Tablet) 1 tab PO DAILY [facility] Last Admin: 04/06/21 11:10 Dose: 1 tab Documented by: Lidocaine (Lidocaine Patch) 1 patch TOPICAL QDAY PRN PRN Reason: pain Ondansetron HCl (Ondansetron 4 Mg Odt Tablet) 4 mg SL Q4-6HP PRN; Protocol PRN Reason: Nausea And Vomiting Ondansetron HCl (Ondansetron 4 Mg/2 Ml Vial) 4 mg IV Q4-6HP PRN; Protocol PRN Reason: Nausea And Vomiting Pantoprazole Sodium (Pantoprazole 40 Mg Tablet) 40 mg PO QAM [facility] Last Admin: 04/06/21 08:25 Dose: 40 mg Documented by: Polyethylene Glycol (Polyethylene Glycol 3350 17 Gm Packet) 17 gm PO DAILYP PRN PRN Reason: Constipation Potassium Chloride (Potassium Chloride 20 Meq Packet) 40 meq PO DAILYP PRN PRN Reason: K+ < 3.5 Quetiapine Fumarate (Quetiapine 25 Mg Tablet) 50 mg PO HS [facility] Senna/Docusate Sodium (Sennosides/Docusate Sodium 1 Tab Tablet) 1 tab PO HS [facility] Sodium Chloride (0.9 % Sodium Chloride 10 Ml Syringe) 10 ml IV Q8 [facility] Verapamil HCl (Verapamil Hcl 80 Mg Tablet) 60 mg PO Q48H [facility] A/P Narrative A/P Narrative: * Right lower lobe pneumonia-clinically improved. Continue Rocephin * Hemophilus influenza Batceremia- 2/2 PNA. Improving on antibiotics * Septic shock with multiple endorgan dysfunction, off pressors, WBC down from 29K -> 12.9K * Acute hypoxic respiratory failure , resolved , now on room air * Pleurisy-secondary to pneumonia, CT scan chest negative for empyema. * Acute kidney injury resolved * Elevated bilirubin, improving * History of anxiety disorder continue BuSpar, fluoxitine/quetiapine(held due to interaction with Levaquin) * GERD continue PPI * Prophylaxis Heparin Plan * Continue continue Rocephin * Pre-existing medical condition management home medications once septic shock resolved * PT OT/nutrition support * transfer to med surg * Possible discharge in 24 hours Time Spent With Patient Time: Total time spent is greater than 50% in coordination of care (as documented) at patient's floor/unit and/or counseling patient:
[2021-04-06] MEDS ORDERED: IBUPROFEN 200 MG TABLET PO PRN (12:30)
[2021-04-06] MEDS: LORazepam 0.5 MG TABLET PO PRN ×2 (12:36→21:20)
[2021-04-06] MEDS: 0.9 % SODIUM CHLORIDE 10 ML SYRINGE IV SCH ×2 (14:00→21:48)
[2021-04-06] MEDS: LIDOCAINE PATCH TOPICAL PRN (16:53)
[2021-04-06] MEDS: NICOTINE 14 MG PATCH TOPICAL SCH (16:53)
[2021-04-06] MEDS ORDERED: IPRATROPIUM/ALBUTEROL 3 ML AMPUL.NEB NEB PRN (18:58)
[2021-04-06] MEDS: BUTALB/ACETAMINOPHEN/CAFFEINE 1 TABLET PO PRN (20:44)
[2021-04-06] MEDS ORDERED: FLUoxetine HCL 20 MG CAPSULE PO SCH (21:00)
[2021-04-06] MEDS ORDERED: hydrOXYzine 25 MG TABLET PO SCH (21:00)
[2021-04-06] MEDS ORDERED: QUEtiapine 25 MG TABLET PO SCH (21:00)
[2021-04-06] MEDS ORDERED: SENNOSIDES/DOCUSATE SODIUM 1 TAB TABLET PO SCH (21:00)
[2021-04-07] MEDS: ACETAMINOPHEN 650 MG/65 ML BAG IV PRN (03:14)
[2021-04-07] MEDS: HYDROcodone/APAP 5/325MG TABLET PO PRN ×2 (05:47→15:01)
[2021-04-07] MEDS: 0.9 % SODIUM CHLORIDE 10 ML SYRINGE IV SCH (06:01)
[2021-04-07] MEDS ORDERED: VERAPAMIL HCL 80 MG TABLET PO SCH ×3 (09:00)
[2021-04-07] MEDS ORDERED: cefTRIAXone 2 GM in DEXTROSE 5% IN WATER 50 ML IV SCH (09:00)
[2021-04-07] MEDS: PANTOPRAZOLE 40 MG TABLET PO SCH (09:54)
[2021-04-07] MEDS: busPIRone 15 MG TABLET PO SCH (09:54)
[2021-04-07] MEDS: HYOSCYAMINE 0.375 MG PO SCH (09:54)
[2021-04-07] MEDS: MULTIVIT,THER IRON,CA,FA & MIN 1 TABLET PO SCH (09:55)
[2021-04-07] MEDS: DOCUSATE SODIUM 100 MG CAPSULE PO SCH (09:55)
[2021-04-07] MEDS: HEPARIN 5,000 UNIT/ML VIAL SQ SCH (09:57)
[2021-04-07] MEDS: LIDOCAINE PATCH TOPICAL PRN (10:22)
[2021-04-07] MEDS: NICOTINE 14 MG PATCH TOPICAL SCH (10:22)
[2021-04-07] MEDS: BUTALB/ACETAMINOPHEN/CAFFEINE 1 TABLET PO PRN (10:22)
--- NOTE | 2021-04-07 10:35 | Discharge Summary ---
Discharge Provider Provider Patient information: Note initiated : 04/07/21 at 10:33 am Service Date, if different from initiated Date: [] Patient: Bisi Rios a 40 y/o F admitted on 04/04/21 for Right Rib Pain. Discharge diagnosis * Right lower lobe pneumonia-clinically resolved. * Hemophilus influenza Batceremia- 2/2 PNA. Resolved on antibiotics. Continue oral Augmentin for additional 7 days * Septic shock with multiple endorgan dysfunction, off pressors, WBC down from 29K -> 12.9K- > 10K * Acute hypoxic respiratory failure , resolved , now on room air * Pleurisy-secondary to pneumonia, CT scan chest negative for empyema. Continue as needed NSAIDs/opioid * Acute kidney injury resolved * Elevated bilirubin, resolved * History of anxiety disorder managed on home dose BuSpar, fluoxitine/quetiapine * GERD continue PPI Brief hospital course Ms. Rios is a 40 year old F living with her kid presents to the ER with worsening cough and right-sided pleuritic chest pain. She was recently evaluated in the ER on March 19 with similar symptoms. She was diagnosed with costochondritis and after initial work-up was discharged home. However over the course of 2 weeks she noted increasing sweats, weakness, fluctuating blood pressure, lethargic, shortness of breath and now presents with worsening right- sided pleuritic chest pain along with associated cough. Initial work-up was consistent with hypotension and septic shock with white count in excess of 29,000. Imaging consistent with right lower lobe pneumonia. Patient was started on pressors after cultures were drawn and antibiotics were initiated. Evidence of multiple endorgan dysfunction during elevated creatinine/bilirubin.. Hospital service was consulted for admission. At the time of my evaluation patient is alert but anxious. She is able to endorse history as above. Endorses to frequent cough and yellowish-orange urine. Denies weight loss, joint pain, rash, headache photophobia. 04/05- Hemophillus bacteremia, Off pressors, WBC 15K, Improved end organ dysfunction, CT chest no evidence of empyema, Large RLL PNA. Improved Bili and lactate. On Abx . Feels anxious, Significant other in room. No concerns per staff. Phos 1.8, start replacement. Pyuria on UA. 04/06-patient doing a lot better. Much improved clinically. No overnight fever chills. White count down to 12.9, hemoglobin 9.1, improved endorgan dysfunction including resolution of renal failure creatinine 1.6, phosphorus of 3.6. Continue antibiotic coverage for H influenza. Stable hemodynamics. Transition to medical floor. T-max 99.5, currently on room air 04/07-patient doing a lot better. Afebrile. Now on room air. Discharging on additional 7 days oral Augmentin to complete a 10-day course of antibiotics for Haemophilus influenza pneumonia bacteremia. Date of admission: 04/04/21 03:06 Discharge date: 04/07/21 Primary care physician: Deidre Phillip Consults: 04/04/21 01:36 Consult to Physician [CONS] Stat Comment: Consulting Provider: Jaleel Howe Reason For Exam: Physician to Consult Discharge Meds Discharge Medications Home Medications albuterol sulfate 90 mcg/actuation aerosol inhaler See Rx Instructions INHALATION .COMPLEX PRN g 04/23/20 [History Confirmed 04/04/21 Last Taken 04/03/21] buspirone 15 mg tablet 7.5 mg PO DAILY 04/23/20 [History Confirmed 04/04/21 Last Taken 04/03/21] hydroxyzine HCl 25 mg tablet 25 mg PO QHS 04/23/20 [History Confirmed 04/04/21 Last Taken 04/02/21] hyoscyamine sulfate 0.375 mg tablet,extended release,12 hr 0.375 mg PO QAM 04/23/20 [History Confirmed 04/04/21 Last Taken 04/03/21] pantoprazole 40 mg tablet,delayed release 40 mg PO QAM 04/23/20 [History Confirmed 04/04/21 Last Taken 04/03/21] quetiapine 50 mg tablet 50 mg PO QHS tab 04/23/20 [History Confirmed 04/04/21 Last Taken 04/02/21] verapamil 120 mg tablet 60 mg PO Q48H 04/23/20 [History Confirmed 04/04/21 Last Taken 04/03/21] lidocaine [Lidoderm] 1 patch TOPICAL QDAY PRN #15 ea 03/19/21 [Rx Confirmed 04/04/21 Last Taken 04/01/21] buspirone 22.5 mg PO HS 04/04/21 [History Confirmed 04/04/21 Last Taken Unknown] fluoxetine 20 mg PO QHS 04/04/21 [History Confirmed 04/04/21 Last Taken 04/02/21] ondansetron HCl 4 mg PO Q4H PRN 04/04/21 [History Confirmed 04/04/21 Last Taken 04/03/21] amoxicillin-pot clavulanate 1 tab PO BID #14 tab 04/07/21 [Rx Last Taken Unknown] hydrocodone-acetaminophen 1 - 2 tab PO Q4HP PRN #14 tab 04/07/21 [Rx Last Taken Unknown] ibuprofen 400 mg PO BIDP PRN #30 tab 04/07/21 [Rx Last Taken Unknown] COURSE Hospital Course Hospital course: . Discharge diagnosis: Haemophilus influenza pneumonia Time Spent with Patient Time attestation: Total time spent providing and/or coordinating discharge services: EXAM Constitutional Vitals: Temp Pulse Resp BP Pulse Ox 98.1 F 75 16 111/77 91 04/07/21 08:00 04/07/21 08:00 04/07/21 08:00 04/07/21 08:00 04/07/21 08:00 Discharge Data Data Completed and Pending Labs on day of discharge: Preliminary micro results at discharge 04/03/21 22:07 Blood Culture - Preliminary Blood Haemophilus influenzae 04/03/21 22:05 Blood Culture - Preliminary Blood Haemophilus influenzae Discharge Plan Patient/Caregiver Discharge Instructions Activity: increase activity as tolerated Diet: Regular Diet Instructions: Sepsis (GEN), Pneumonia (GEN) Activity Restrictions/Additional Instructions: Continue antibiotics for additional 7 days oral Augmentin Follow-up PCP in 5 to 7 days Return to ER if worsening chest pain, shortness of breath fever chills noted This discharge packet is provided to you to help keep you informed about your care. We want to ensure you get everything you need when you go home. You will also be receiving a call from us in a few days to follow up with you and see how you are doing since your discharge. This gives us a chance to listen to any concerns you maybe experiencing since you were discharged or any additional needs you may have, as well as providing us feedback on your care experience. We strive to always provide excellent care and thank you for your feedback and for choosing [facility]. Prescriptions: New amoxicillin-pot clavulanate 875-125 mg Tablet 1 tab PO BID Qty: 14 RF: 0 ibuprofen 200 mg Tablet 400 mg PO BIDP PRN (Reason: Per Pain Protocol) Qty: 30 RF: 0 hydrocodone-acetaminophen 5-325 mg Tablet 1 - 2 tab PO Q4HP PRN (Reason: Per Pain Protocol) Qty: 14 RF: 0 Continued albuterol sulfate [ProAir HFA] 90 mcg/actuation HFA aerosol inhaler See Rx Instructions INHALATION .COMPLEX PRN (Reason: Wheezing) RF: 0 hyoscyamine sulfate 0.375 mg tablet extended release 12 hr 0.375 mg PO QAM RF: 0 quetiapine [Seroquel] 50 mg tablet 50 mg PO QHS RF: 0 pantoprazole 40 mg tablet,delayed release (DR/EC) 40 mg PO QAM RF: 0 verapamil 120 mg tablet 60 mg PO Q48H RF: 0 buspirone 15 mg tablet 7.5 mg PO DAILY RF: 0 hydroxyzine HCl 25 mg tablet 25 mg PO QHS RF: 0 lidocaine [Lidoderm] 5 % adhesive patch,medicated 1 patch topical QDAY PRN (Reason: pain) Qty: 15 RF: 0 buspirone 15 mg tablet 22.5 mg PO HS RF: 0 fluoxetine 20 mg capsule 20 mg PO QHS RF: 0 ondansetron HCl 4 mg tablet 4 mg PO Q4H PRN (Reason: Nausea And Vomiting) RF: 0 Follow Up Plan Follow up with: Deidre Phillip ARNP [Primary Care Provider] - 04/13/21 8:00 am Patient Disposition: Home, Self-Care Rehab Potential: Fair I certify that the patient requires SNF services: No Overall status at discharge: patient is progressing back to baseline Discharge Orders: Discharge Order (Routine); Ordered 04/07/21 Ordered By: Jaleel Howe
== END 2021-04-07 14:45 | disposition home or self-care (01) | DRG 871 ==
LOC: ED 20:32 → UNDODISIN 04-04 03:06 → ICU 04-04 03:06
PROVIDERS: ADMIT Internal Medicine; ATTEND Internal Medicine